=== PATIENT | male | born 1940 | race Caucasian/White ===

== ENCOUNTER 2017-07-22 08:55 | Day surgery (SDC) | payer MEDICARE, SELFPAY ==
[~2017-07-22] VITALS: Ht 180.3 cm; Wt 80.3 kg
[~2017-07-22 08:55] MED LIST: ADAL40PEN; AMLO5 PO; ASPI81CH; ATOR20 PO; BENA20 PO; BUME2 PO; CEFD300; CETI5; CHOL10002; DOCU100; FIBER; FURO20 PO; FURO80 PO; GLIP10 PO; HYDMOR2 PO; INSU100I6 SC; INSUASPI; INSUASPI SUBQ; INSULANI SUBQ; INSULANPEN SC; IRON; LATA.005SO; LAVAP17G; LAVAP17G PO; LOSA50; Norco 5-325 Ta1 EACH PO; PARI1 PO; PSYL5.85P; ROSU5 PO; Simvastatin10 MG PO; Uloric80 MG PO; VITAMIN B122500 MCG; Vitamin C100 M1; Zithromax250 MG; Zofran Odt4 MG PO; [UNRECOGNIZED DRUG - OTHER]
== END 2017-07-22 11:11 | disposition home or self-care (01) ==
LOC: ORSCSDS 08:55
PROVIDERS: Internal Medicine Gastroenterology
PROC: 0DBB8ZX Excision of Ileum, Via Natural or Artificial Opening Endoscopic, Diagnostic (ICD-10-PCS; principal; 2017-07-22 10:15)
DX: K50.019 Crohn's disease of small intestine with unspecified complications (principal); K52.9 Noninfective gastroenteritis and colitis, unspecified; K64.8 Other hemorrhoids; K57.30 Diverticulosis of large intestine without perforation or abscess without bleeding; J44.9 Chronic obstructive pulmonary disease, unspecified; Z87.891 Personal history of nicotine dependence; Z79.82 Long term (current) use of aspirin; Z79.4 Long term (current) use of insulin; Z79.899 Other long term (current) drug therapy
CPT/HCPCS: 82947; 88305; J7120

== ENCOUNTER 2019-06-09 08:21 | Inpatient (IN) | payer MEDICARE, OTHER ==
[~2019-06-09] VITALS: Ht 180.3 cm; Wt 68.9 kg
[~2019-06-09 08:21] MED LIST changes: -ASPI81CH; +Aspirin EC81 MG PO; -INSU100I6 SC; -LATA.005SO; +LATA.005SO BOTHEYES; +NOVOLOG FL100 UNIT/1 SC
[2019-06-09] MEDS ORDERED: CALC.25 PO (08:45)
[2019-06-09] MEDS ORDERED: Prednisone10 M1 PO (08:46)
[2019-06-09 09:31] LABS: BASOPHILS ABSOLUTE AUTO 0.01 K/mm3 (0.00-0.23); BASOPHILS PERCENT AUTO 0 % (0-2); EOSINOPHILS PERCENT AUTO 0 % (0-6); Hematocrit 34.2 % (37.0-53.0); Hemoglobin 11.6 g/dL (13.5-17.5); IMMATURE GRAN ABSOLUTE AUTO 0.16 K/mm3 (0.00-0.10); IMMATURE GRAN PERCENT AUTO 1 % (0-1); LYMPHOCYTES ABSOLUTE AUTO 0.11 K/mm3 (0.84-5.20); LYMPHOCYTES PERCENT AUTO 1 % (21-46); MONOCYTES ABSOLUTE AUTO 0.58 K/mm3 (0.16-1.47); MONOCYTES PERCENT AUTO 5 % (4-13); Mean Corpuscular HGB 31.5 pg (26.0-34.0); Mean Corpuscular HGB Conc 33.9 g/dL (31.5-36.5); Mean Corpuscular Volume 93 fL (80-100); Mean Platelet Volume 11.1 fL (9.1-12.4); NEUTROPHILS ABSOLUTE AUTO 11.05 K/mm3 (1.96-9.15); NEUTROPHILS PERCENT AUTO 93 % (41-73); Platelet Count 214 K/mm3 (150-400); RDW Coefficient Variation 13.8 % (11.7-14.2); RDW Standard Deviation 47.2 fL (35.1-46.3); Red Blood Cell Count 3.68 M/mm3 (4.30-5.90); White Blood Cell Count 11.91 K/mm3 (4.00-11.30)
[2019-06-09 09:32] LABS: Source, Urine Clean Catch
[2019-06-09 09:40] LABS: Bilirubin, Urine Neg (Neg); Blood, Urine 2+ (Neg); Glucose Qualitative, Urine 4+ (Neg); Ketones, Urine Neg (Neg); Leukocyte Esterase, Urine Neg (Neg); Nitrite, Urine Neg (Neg); Protein, Urine 2+ (Neg); Urobilinogen, Urine NORM (Normal)
[2019-06-09 09:47] LABS: Appearance, Urine Clear (Clear); Bacteria Not Seen /hpf; Color, Urine Pale Yellow (P-Yellow); Red Blood Cells, Urine 0-2 /hpf (0-2); Squamous Epithelial Cells Rare /hpf (Few); White Blood Cells, Urine Not Seen /hpf (0-5)
[2019-06-09 09:51] LABS: Troponin I 0.061 ng/mL (0.000-0.040)
[2019-06-09 09:58] LABS: Bilirubin, Total 0.6 mg/dL (0.1-1.0); Bun/Creatinine Ratio 24.4 (12.0-20.0); Calcium, Blood 7.8 mg/dL (8.5-10.1); Creatinine, Blood 2.34 mg/dL (0.60-1.20); Globulin, Blood 3.1 g/dL (2.2-4.0); Potassium, Blood 5.5 mmol/L (3.5-5.5); Total Protein, Blood 6.1 g/dL (6.4-8.2)
[2019-06-09] MEDS ORDERED: LOSA50 PO (12:51)
[2019-06-09] MEDS ORDERED: Glucotrol5 MG PO (12:53)
[2019-06-09] MEDS ORDERED: TAMSULOSIN HCL0.4 M1 PO (12:54)
[2019-06-09] MEDS ORDERED: OMEP20ER PO (12:54)
[2019-06-09] MEDS ORDERED: Vitamin D2000 UNIT PO (15:24)
--- NOTE | 2019-06-09 15:32 | NUR ---
Assumed Care A/Ox3, patient from ER to room 342. REceived report from LEVI Levine. Patient arrived to unit via wheelchair and settled to room. Call light near, bed in lowest position. Patient oriented to call light and bed controls.
[2019-06-09 17:56] LABS: Glucose, Blood 533 mg/dL (70-99)
--- NOTE | 2019-06-09 18:14 | NUR ---
Blood Sugar 533 Called and L/M on Charmaine's phone RE Blood sugar of 533.
--- NOTE | 2019-06-09 18:18 | NUR ---
Shift Summary A/Ox4 to self, date, place, and situation although can be forgetful about timeline. Pt is on RA, Tele in place. Patient has been hyperglycemic >500's (see previous note) and tank car inspector Sally aware. Pt is continent to the bathroom, 1P min-mod assist c gait and FWW. Denies pain at this time. Patient has symptoms of polydipsia and polyphagia. Wound care provided to skin tears on L elbow and arm from fall at home. No other concerns at this time.
--- NOTE | 2019-06-09 18:35 | NUR ---
Blood Sugar Per Charmaine, NPO and Q4 Blood sugar checks until BS < 300, give Lantus early. Fast acting insulin will be changed to High SS. Q4 blood sugar checks to be treated with High SS.
[2019-06-09 20:57] LABS: Glucose, Blood 494 mg/dL (70-99)
--- NOTE | 2019-06-09 22:06 | NUR ---
CALLED SNACK BAR CASHIER INFORMED HER PT'S GLUCOSE WAS 496. SHE ORDERED 20 UNITS HUMALOG SUBCUT NOW. WILL RECHECK GLUCOSE LEVEL IN 4 HOURS ORDERED. PT IS NPO EXCEPT WATER, ORDERED.
--- NOTE | 2019-06-09 23:45 | NUR ---
CALLED PREFORMING MACHINE OPERATOR TROPONIN LAB STILL TRENDING UP, NOW 0.113 (WAS 0.096 @ 3PM TODAY). ORDERS ARE TO RECHECK TROPONIN LAB IN 8 HRS. ORDERS ENTERED. PT IS ASYMPTOMATIC, DENIES CHEST PAIN. TELEMETRY STATES PT IS NSR W/PAC'S @ 62 BPM. ALTHOUGH NOT CRITICAL HIGH LAB, UPWARD TREND OF THIS LAB IS CONCERNING. WILL CONTINUE TO MONITOR.
--- NOTE | 2019-06-10 04:10 | NUR ---
SHIFT SUMMARY ADMITTED FOR WEAKNESS, FELL AT HOME. DNR CODE. UNCONTROLLED DM2. ACHS CHEMSTICKS, HIGH SS, ADA/LOW NA+ DIET. 1 KIDNEY-BAEZ PT. RA, CONTINENT. 1 ASSIST W/FWW & GAITBELT TO BATHROOM. NS INFUSING @ 100 ML/HR. LIVES ALONE, MAY NEED TO DC W/HH. UNCONTROLLED CHRONIC HTN - GOAL < 180 SBP. HYDRALAZINE PRN AVAILABLE FOR > 190 SBP. GLUCOSE LEVEL 290 AT LAST CHEMSTICK. CONCERN FOR UPTRENDING TROPONIN LABS (0.113), ALL LABS TO BE DRAWN @ 0800 (ALONG W/NEW TROPONIN). TELEMETRY MONITORING: NSR W/PAC'S @ 62 BPM. HX: HTN, DM2, CKD3, CROHNS DISEASE, COPD, ASTHMA, BLADDER CANCER. DAILY POT SMOKER PER ER REPORT. DRESSING ON LEFT ARM WOUNDS FROM FALL CHANGED THIS SHIFT.
[2019-06-10 08:10] LABS: BASOPHILS ABSOLUTE AUTO 0.01 K/mm3 (0.00-0.23); BASOPHILS PERCENT AUTO 0 % (0-2); EOSINOPHILS PERCENT AUTO 1 % (0-6); Hematocrit 32.6 % (37.0-53.0); Hemoglobin 11.1 g/dL (13.5-17.5); IMMATURE GRAN ABSOLUTE AUTO 0.21 K/mm3 (0.00-0.10); IMMATURE GRAN PERCENT AUTO 2 % (0-1); LYMPHOCYTES ABSOLUTE AUTO 1.36 K/mm3 (0.84-5.20); LYMPHOCYTES PERCENT AUTO 12 % (21-46); MONOCYTES ABSOLUTE AUTO 0.71 K/mm3 (0.16-1.47); MONOCYTES PERCENT AUTO 6 % (4-13); Mean Corpuscular HGB 31.3 pg (26.0-34.0); Mean Corpuscular Volume 92 fL (80-100); Mean Platelet Volume 10.5 fL (9.1-12.4); NEUTROPHILS ABSOLUTE AUTO 8.88 K/mm3 (1.96-9.15); NEUTROPHILS PERCENT AUTO 79 % (41-73); Platelet Count 189 K/mm3 (150-400); RDW Coefficient Variation 13.9 % (11.7-14.2); Red Blood Cell Count 3.55 M/mm3 (4.30-5.90); White Blood Cell Count 11.27 K/mm3 (4.00-11.30)
[2019-06-10 08:37] LABS: Troponin I 0.104 ng/mL (0.000-0.040)
[2019-06-10 08:42] LABS: Albumin, Blood 2.7 g/dL (3.4-5.0); Bilirubin, Total 0.5 mg/dL (0.1-1.0); Bun/Creatinine Ratio 19.9 (12.0-20.0); Calcium, Blood 7.4 mg/dL (8.5-10.1); Creatinine, Blood 2.06 mg/dL (0.60-1.20); Globulin, Blood 2.8 g/dL (2.2-4.0); Potassium, Blood 3.8 mmol/L (3.5-5.5); Total Protein, Blood 5.5 g/dL (6.4-8.2)
--- NOTE | 2019-06-10 10:44 | NUR ---
Blood Sugar check Blood sugar checked this AM and found to be 28. Pt conscious, alert, talking, diaphoretic, and c/o being hot. Afebrile. Pt given orange juice with peanut butter and blood sugars were rechecked, this process was repeated over the course of 1-2 hours. recruiting associate notified and aware. Blood sugar is now 72. Pt is resting comfortably in bed after having breakfast.
--- NOTE | 2019-06-10 17:30 | NUR ---
SHIFT SUMMARY A/OX4, PLEASANT GENTLEMAN, DOES NOT CALL APPROPRIATELY USING CALL LIGHT DESPITE REMINDERS. CONTINENT, 1P SBA FWW TO BATHROOM, INDEPENDENT WITH URINAL AT BEDSIDE. PT'S EVENING BLOOD SUGAR IS 266. WOUND CARE ON SKIN TEAR TO LEFT ELBOW AND FOREARM, DRESSING CHANGED X 2. PT'S SISTER (ESTIVEN) HAS AGREED AND PREFERS PATIENT BEING DISCHARGED WITH HH TO HER HOUSE SHE HAS AN EXTRA ROOM AVAILABLE AND ABLE TO BE THERE 24 HOURS/DAY. ESTIVEN PROVIDED HER ADDRESS, THIS RN PLACED IT IN FRONT OF CHART. NO OTHER CONCERNS AT THIS TIME. WILL CONTINUE TO MONITOR.
--- NOTE | 2019-06-11 03:57 | NUR ---
SHIFT SUMMARY ADMITTED FOR WEAKNESS. DNR CODE. UNCONTROLLED DM2 & HTN, NONCOMPLIANT W/HOME MEDS. 1 REMAINING KIDNEY - BAEZ PT. RA, CONTINENT, 1 ASSIST W/FWW & GAIT BELT. ADA/2 G LOW NA+ DIET, LOW SS, ACHS CHEMSTICKS, A&O X3-4, FORGETFUL. LIVES ALONE. PLAN IS TO STABILIZE GLUCOSE LEVELS. HOPEFUL TO DC TO SISTER'S HOME W/HH. TELEMETRY IS MONITORING: NSR @ 64 BPM. PRN HYDRALAZINE IN EMAR IF SBP >190. NS INFUSING @ 100 ML/HR. SKIN TEARS ON LEFT ARM FROM RECENT FALL ARE BANDAGED. GLUCOSE 370 THIS SHIFT. HX: BLADDER CA, HTN, DM2, CKD3, CROHNS DISEASE, COPD, ASTHMA.
[2019-06-11 05:28] LABS: BASOPHILS ABSOLUTE AUTO 0.01 K/mm3 (0.00-0.23); BASOPHILS PERCENT AUTO 0 % (0-2); EOSINOPHILS ABSOLUTE AUTO 0.04 K/mm3 (0.00-0.68); EOSINOPHILS PERCENT AUTO 1 % (0-6); Hematocrit 29.7 % (37.0-53.0); Hemoglobin 9.9 g/dL (13.5-17.5); IMMATURE GRAN ABSOLUTE AUTO 0.13 K/mm3 (0.00-0.10); IMMATURE GRAN PERCENT AUTO 2 % (0-1); LYMPHOCYTES ABSOLUTE AUTO 0.43 K/mm3 (0.84-5.20); LYMPHOCYTES PERCENT AUTO 6 % (21-46); MONOCYTES ABSOLUTE AUTO 0.48 K/mm3 (0.16-1.47); MONOCYTES PERCENT AUTO 7 % (4-13); Mean Corpuscular HGB 31.6 pg (26.0-34.0); Mean Corpuscular HGB Conc 33.3 g/dL (31.5-36.5); Mean Platelet Volume 10.7 fL (9.1-12.4); NEUTROPHILS ABSOLUTE AUTO 5.74 K/mm3 (1.96-9.15); NEUTROPHILS PERCENT AUTO 84 % (41-73); Platelet Count 161 K/mm3 (150-400); RDW Coefficient Variation 14.4 % (11.7-14.2); Red Blood Cell Count 3.13 M/mm3 (4.30-5.90); White Blood Cell Count 6.83 K/mm3 (4.00-11.30)
[2019-06-11 05:32] LABS: Mean Corpuscular Volume 95 fL (80-100)
[2019-06-11 05:53] LABS: Albumin, Blood 2.2 g/dL (3.4-5.0); Anion Gap 5 mmol/L (6-16); Blood Urea Nitrogen 37 mg/dL (8-24); Bun/Creatinine Ratio 17.5 (12.0-20.0); CO2, Blood 22 mmol/L (21-32); Calcium, Blood 7.2 mg/dL (8.5-10.1); Chloride, Blood 114 mmol/L (98-108); Creatinine, Blood 2.12 mg/dL (0.60-1.20); Glomerular Filtration Rate 32 (60-); Glucose, Blood 250 mg/dL (70-99); Phosphorus, Blood 1.6 mg/dL (2.5-4.9); Potassium, Blood 4.3 mmol/L (3.5-5.5); Sodium, Blood 141 mmol/L (136-145)
--- NOTE | 2019-06-11 16:21 | NUR ---
SHIFT SUMMARY PT AWAKE DURING SHIFT REPORT, WATCHING TV. BED ALARM ON FOR SAFETY. HX OF FALLS AT HOME WITH DRSG TO L ARM D/T SKIN TEAR FROM HOME. PT GETTTING UP TO EOB TO USE URINAL AT BS, SETTING BED ALARM OFF. PT WEAK AND VERY UNSTEADY FIRST SEVERAL HOURS OF THE DAY. PT LATER TO BTHRM SEVERAL TIMES TO VOID, USING FWW, DOING BETTER. PT'S NEPHEW IN TODAY ASKING ABOUT PT GOING HOME. NEPHEW REPORTED PT NEEDING TO GO TO HIS SISTERS FOR ASSISTANCE AND CARE AT D/C. HX OF IDDM; VERY BRITTLE DIABETIC. PT NONCOMPLIANT WITH MEDS AND DIABETIC DIET AT HOME, LIVING ALONE. PT ABLE TO WORK WITH PT/OT TODAY AND POSSIBLY D/C TO SNF TODAY OR TOMORROW. CARE MANAGERS WORKING WITH PT. CALL LT IN REACH. PT ABLE TO USE.
[2019-06-12 05:31] LABS: BASOPHILS ABSOLUTE AUTO 0.02 K/mm3 (0.00-0.23); BASOPHILS PERCENT AUTO 0 % (0-2); EOSINOPHILS PERCENT AUTO 1 % (0-6); Hematocrit 28.5 % (37.0-53.0); Hemoglobin 9.5 g/dL (13.5-17.5); IMMATURE GRAN ABSOLUTE AUTO 0.16 K/mm3 (0.00-0.10); IMMATURE GRAN PERCENT AUTO 2 % (0-1); LYMPHOCYTES ABSOLUTE AUTO 0.72 K/mm3 (0.84-5.20); LYMPHOCYTES PERCENT AUTO 10 % (21-46); MONOCYTES ABSOLUTE AUTO 0.53 K/mm3 (0.16-1.47); MONOCYTES PERCENT AUTO 8 % (4-13); Mean Corpuscular HGB 30.9 pg (26.0-34.0); Mean Corpuscular HGB Conc 33.3 g/dL (31.5-36.5); Mean Corpuscular Volume 93 fL (80-100); Mean Platelet Volume 10.8 fL (9.1-12.4); NEUTROPHILS ABSOLUTE AUTO 5.42 K/mm3 (1.96-9.15); NEUTROPHILS PERCENT AUTO 78 % (41-73); Platelet Count 168 K/mm3 (150-400); RDW Coefficient Variation 14.4 % (11.7-14.2); RDW Standard Deviation 48.5 fL (35.1-46.3); Red Blood Cell Count 3.07 M/mm3 (4.30-5.90); White Blood Cell Count 6.95 K/mm3 (4.00-11.30)
--- NOTE | 2019-06-12 05:43 | NUR ---
GROUND SCHOOL INSTRUCTOR SUMMARY PT SLEPT WELL ALL NIGHT. IV IN RIGHT UPPER ARM BURNED AND INFILTRATED. THERE'S BEEN NO ACUTE CHANGES. VSS. DR. ELAM CALLED AND AN NO IV ACCESS WAS ORDERED. PEPCID 20 MG IV BID DC'D. PEPCID 20 MG PO BID ORDERED. POSSIBLE DISCHARGE TO [facility] TODAY.
[2019-06-12 05:57] LABS: Albumin, Blood 2.4 g/dL (3.4-5.0); Anion Gap 4 mmol/L (6-16); Blood Urea Nitrogen 40 mg/dL (8-24); Bun/Creatinine Ratio 18.5 (12.0-20.0); CO2, Blood 24 mmol/L (21-32); Calcium, Blood 7.7 mg/dL (8.5-10.1); Chloride, Blood 114 mmol/L (98-108); Creatinine, Blood 2.16 mg/dL (0.60-1.20); Glomerular Filtration Rate 32 (60-); Glucose, Blood 151 mg/dL (70-99); Phosphorus, Blood 1.8 mg/dL (2.5-4.9); Sodium, Blood 142 mmol/L (136-145)
--- NOTE | 2019-06-12 09:55 | NUR ---
PT PUSHED CALL LIGHT TWICE WITHIN ONE MINUTE, TALENT ACQUISITION ASSISTANT PROMPTY SHOWED UP, PT RAN TO BR WITH WALKER NOT LISTENING TO TALENT ACQUISITION ASSISTANT.
[2019-06-12] MEDS ORDERED: INSULANPEN SC (11:56)
--- NOTE | 2019-06-12 12:12 | NUR ---
SHIFT SUMMARY NO ACUTE CHANGES TO PRESENT THIS SHIFT. PT UP TO EOB TO USE URINAL AND TO BTHRM USING FWW AND 1P SBA. SITTING IN CHAIR AT BS FOR MEALS. REMAINS UNSTEADY WHEN LEFT ALONE. PT TO D/C TO [facility] THIS AFTERNOON. PT SOMEWHAT STUBBORN AND USED TO LIVING ON HIS OWN. PT'S SISTER WOULD LIKE PT TO LIVE WITH HER, BUT PT WANTING TO RETURN HOME. PT IS FORGETFUL AND NEEDING SOME ASSIST, BUT IN DENIAL. BED AND CHAIR ALARMS ON. CALL LT IN REACH. PT USES FREQUENTLY, BUT ALSO SETS OFF ALARMS FREQUENTLY WELL. NO C/O. WILL MONITOR.
--- NOTE | 2019-06-12 17:19 | NUR ---
PT UP TO SHOWER EARLIER TODAY AND INTO HOME CLOTHES, HOPING TO GO HOME. STILL WAITING FOR INSURANCE TO APPROVE REHAB. PT UNABLE TO D/C TODAY. ASSISTED PT BACK INTO GOWN AND INTO BED. RESTING QUIETLY. CALL LT IN REACH.
--- NOTE | 2019-06-13 06:20 | NUR ---
SHIFT SUMMARY PT IS 78 Y/O MALE, ADMITTED FOR ACS. HE IS A&O X 3, AND A 1PA OUT OF BED. PT DENIED ANY COMPLAINTS OF PAIN, NAUSEA OR SOB. VITAL SIGNS STABLE. PT SLEPT WELL DURING THE NIGHT. NO ACUTE CHANGES IN PT CONDITION NOTED. WILL CONTINUE TO MONITOR AND TREAT PER EMAR UNTIL HAND OFF TO DAY SHIFT RN.
--- NOTE | 2019-06-13 14:09 | NUR ---
SHIFT SUMMARY A/OX4, PLEASANT AND COOPERATIVE WITH CARE. PT DISCHARGING TO [facility]. PT ESCORTED BY WHEELCHAIR VIA TRANSPORTER. PT HAD A SHOWER AND LAST BM TODAY. NO C/O PAIN. PERSONAL BELONGINGS SENT WITH PATIENT. REPORT GIVEN TO RECEIVING NURSE ABDIRAHMAN @ [facility], YELLOW FOLDER GIVENT TO PERSONNEL SUPERVISOR.
== END 2019-06-13 14:04 | DRG 638 ==
LOC: ER 08:21 → MEDS 12:38 → ENPENDDIS 06-12 12:00 → MEDS 06-12 22:14
PROVIDERS: Emergency Medicine; Family Medicine; ADMIT Family Medicine
DX: E11.65 Type 2 diabetes mellitus with hyperglycemia (principal); N17.9 Acute kidney failure, unspecified; K58.9 Irritable bowel syndrome, unspecified; J43.9 Emphysema, unspecified; E11.22 Type 2 diabetes mellitus with diabetic chronic kidney disease; I12.9 Hypertensive chronic kidney disease with stage 1 through stage 4 chronic kidney disease, or unspecified chronic kidney disease; N18.3 Chronic kidney disease, stage 3 (moderate); R29.6 Repeated falls; Z91.81 History of falling; Z87.891 Personal history of nicotine dependence; Z66 Do not resuscitate; Z79.84 Long term (current) use of oral hypoglycemic drugs; Z79.82 Long term (current) use of aspirin; Z79.4 Long term (current) use of insulin; Z79.899 Other long term (current) drug therapy
CPT/HCPCS: 36415; 71046; 80053; 80069; 81001; 82947; 83880; 84484; 85025; 93005; 93010; 94640; 96360; 96361; 97110; 97116; 97129; 97130; 97162; 97166; 97530; 97535; 99285-25; J1650; J1815; J7030; J7512

== ENCOUNTER 2019-07-08 07:00 | Inpatient (IN) | payer MEDICARE, OTHER ==
[~2019-07-08] VITALS: Ht 180.3 cm; Wt 69.8 kg
[~2019-07-08 07:00] MED LIST changes: +CALC.25 PO; +Glucotrol5 MG PO; +LOSA50 PO; +OMEP20ER PO; +Prednisone10 M1 PO; +TAMSULOSIN HCL0.4 M1 PO; -VITAMIN B122500 MCG; +VITAMIN B122500 MCG PO; +Vitamin D2000 UNIT PO
[2019-07-08 07:47] LABS: Hemoglobin 9.9 g/dL (13.5-17.5); Mean Corpuscular HGB 30.7 pg (26.0-34.0); Mean Corpuscular HGB Conc 31.9 g/dL (31.5-36.5); Mean Corpuscular Volume 96 fL (80-100); Mean Platelet Volume 9.6 fL (9.1-12.4); Platelet Count 495 K/mm3 (150-400); RDW Coefficient Variation 14.3 % (11.7-14.2); RDW Standard Deviation 49.7 fL (35.1-46.3); Red Blood Cell Count 3.23 M/mm3 (4.30-5.90); White Blood Cell Count 29.98 K/mm3 (4.00-11.30)
[2019-07-08] MEDS ORDERED: FUROSEMIDE20 MG PO (08:04)
[2019-07-08 08:19] LABS: BAND PERCENT MAN 15 % (0-8); BASOPHILS PERCENT MAN 0 % (0-2); EOSINOPHILS PERCENT MAN 0 % (0-6); MONOCYTES ABSOLUTE MAN 2.69 K/mm3 (0.16-1.47); MONOCYTES PERCENT MAN 9 % (4-13); NEUTROPHILS ABSOLUTE MAN 27.28 K/mm3 (1.96-9.15); SEG NEUTROPHILS PERCENT MAN 76 % (41-73); TOTAL CELLS COUNTED 100
[2019-07-08 08:36] LABS: Albumin, Blood 2.1 g/dL (3.4-5.0); Albumin/Globulin Ratio 0.4 (0.8-1.8); Bilirubin, Total 0.3 mg/dL (0.1-1.0); Bun/Creatinine Ratio 12.5 (12.0-20.0); Calcium, Blood 5.2 mg/dL (8.5-10.1); Creatinine, Blood 2.32 mg/dL (0.60-1.20); Globulin, Blood 4.7 g/dL (2.2-4.0); Total Protein, Blood 6.8 g/dL (6.4-8.2)
[2019-07-08 14:15] LABS: Calcium, Blood 5.3 mg/dL (8.5-10.1); Magnesium, Blood 0.5 mg/dL (1.6-2.4); Phosphorus, Blood 5.4 mg/dL (2.5-4.9)
[2019-07-08 14:54] LABS: Adenovirus Not Detected (NOT DETECT); Coronavirus 229E Not Detected (NOT DETECT); Coronavirus HKU1 Not Detected (NOT DETECT); Coronavirus NL63 Not Detected (NOT DETECT); Coronavirus OC43 Not Detected (NOT DETECT); Human Metapneumovirus Not Detected (NOT DETECT); Human Rhinovirus/Enterovirus Not Detected (NOT DETECT); Influenza A Not Detected (NOT DETECT); Influenza A/2009-H1 Not Detected (NOT DETECT); Influenza A/H1 Not Detected (NOT DETECT); Influenza A/H3 Not Detected (NOT DETECT); Influenza B Not Detected (NOT DETECT); Parainfluenza Virus 1 Not Detected (NOT DETECT); Parainfluenza Virus 2 Not Detected (NOT DETECT); Parainfluenza Virus 3 Not Detected (NOT DETECT); Parainfluenza Virus 4 Not Detected (NOT DETECT)
[2019-07-08 14:55] LABS: Bordetella pertussis Not Detected (NOT DETECT); Chlamydophila pneumoniae Not Detected (NOT DETECT); Mycoplasma pneumoniae Not Detected (NOT DETECT); Respiratory Syncytial Virus Not Detected (NOT DETECT)
[2019-07-08 17:45] LABS: Source, Urine Clean Catch
[2019-07-08 17:53] LABS: Bilirubin, Urine Neg (Neg); Blood, Urine 4+ (Neg); Glucose Qualitative, Urine Neg (Neg); Ketones, Urine Neg (Neg); Leukocyte Esterase, Urine Neg (Neg); Nitrite, Urine Neg (Neg); Protein, Urine 2+ (Neg); Specific Gravity, Urine 1.015 (1.003-1.022); Urobilinogen, Urine NORM (Normal)
[2019-07-08 18:13] LABS: Appearance, Urine Clear (Clear); Color, Urine Yellow (P-Yellow)
[2019-07-08 18:14] LABS: Bacteria Few /hpf; Red Blood Cells, Urine 0-2 /hpf (0-2); Squamous Epithelial Cells Few /hpf (Few); White Blood Cells, Urine 0-2 /hpf (0-5)
[2019-07-08 18:15] LABS: Amorphous Light (0-Heavy)
--- NOTE | 2019-07-08 19:08 | NUR ---
SHIFT SUMMARY PT IS A CONFUSED, ONLY ORIENTED TO SELF, WHO WAS ADMITTED FROM ER THIS AFTERNOON. PT WAS A POOR HISTORIAN AND WOULD ANSWER QUESTIONS WITH "I DON'T KNOW" ATTEMPTED TO REACH OUT TO FAMILY FOR CLARIFICATION, BUT WAS UNABLE TO REACH THEM. PT HAD MULTIPLE CRITICALLY LOW ELECTROLYTES AND MULTIPLE CONVERSATIONS WERE HAD WITH DR COYLE. ELECTROLYTES WERE REPLACED PER ORDERS. THIS EVENINGS CBG WAS LOW AT 36. 1/2 AMP OF D50 GIVEN AND CBG CAME UP TO 99. INFUSION OF D5NS WAS STARTED TO HELP PT MAINTAIN GLUCOSE LEVEL. VITALS HAVE REMAINED STABLE. TELEMETRY SHOWS PT IN SINUS RHYTHM. PT ARRIVED ON 2L NC.
[2019-07-08 19:10] LABS: Free Thyroxine 1.18 ng/dL (0.70-1.60)
[2019-07-08 19:12] LABS: Thyroid Stimulating Hormone 0.842 uIU/mL (0.360-4.800)
--- NOTE | 2019-07-08 19:15 | NUR ---
RECEIVED REPORT FROM LEVI QUINTANILLA. ASSUMED CARE OF PT. RESTING COMFORTABLY IN NO ACUTE DISTRESS AT THIS TIME. DENIES ANY NEEDS AT THIS TIME. CALL LIGHT IN REACH, BED IN LOW AND LOCKED POSITION WITH BED ALARM ACTIVATED. WILL CONTINUE TO MONITOR.
--- NOTE | 2019-07-08 21:38 | NUR ---
SPOKE TO DR. COYLE REGARDING PT'S CALCIUM AND MAGNESIUM LEVELS, CBG READING, AND CLARIFIED MEDICATIONS. ORDERS RECEIVED.
--- NOTE | 2019-07-08 22:00 | NUR ---
SPOKE TO DR. COYLE REGARDING PT'S RECENT CALCIUM LEVEL. ORDERS RECEIVED.
[2019-07-09 03:18] LABS: BASOPHILS ABSOLUTE AUTO 0.01 K/mm3 (0.00-0.23); BASOPHILS PERCENT AUTO 0 % (0-2); EOSINOPHILS PERCENT AUTO 0 % (0-6); Hematocrit 26.3 % (37.0-53.0); Hemoglobin 8.6 g/dL (13.5-17.5); IMMATURE GRAN ABSOLUTE AUTO 0.09 K/mm3 (0.00-0.10); IMMATURE GRAN PERCENT AUTO 1 % (0-1); LYMPHOCYTES ABSOLUTE AUTO 0.39 K/mm3 (0.84-5.20); LYMPHOCYTES PERCENT AUTO 2 % (21-46); MONOCYTES ABSOLUTE AUTO 0.67 K/mm3 (0.16-1.47); MONOCYTES PERCENT AUTO 4 % (4-13); Mean Corpuscular HGB Conc 32.7 g/dL (31.5-36.5); Mean Corpuscular Volume 95 fL (80-100); Mean Platelet Volume 9.5 fL (9.1-12.4); NEUTROPHILS ABSOLUTE AUTO 16.93 K/mm3 (1.96-9.15); NEUTROPHILS PERCENT AUTO 94 % (41-73); Platelet Count 438 K/mm3 (150-400); RDW Coefficient Variation 14.2 % (11.7-14.2); RDW Standard Deviation 49.7 fL (35.1-46.3); Red Blood Cell Count 2.77 M/mm3 (4.30-5.90); White Blood Cell Count 18.09 K/mm3 (4.00-11.30)
[2019-07-09 03:36] LABS: Albumin, Blood 1.9 g/dL (3.4-5.0); Albumin/Globulin Ratio 0.5 (0.8-1.8); Bilirubin, Total 0.3 mg/dL (0.1-1.0); Bun/Creatinine Ratio 13.9 (12.0-20.0); Calcium, Blood 6.9 mg/dL (8.5-10.1); Creatinine, Blood 2.31 mg/dL (0.60-1.20); Globulin, Blood 4.2 g/dL (2.2-4.0); Phosphorus, Blood 5.8 mg/dL (2.5-4.9); Potassium, Blood 3.9 mmol/L (3.5-5.5); Total Protein, Blood 6.1 g/dL (6.4-8.2)
--- NOTE | 2019-07-09 07:42 | NUR ---
PT RESTING IN BED COMFORTABLY, IN NO ACUTE DISTRESS. WAS MONITORED EVERY 1-2 HOURS T/O SHIFT C NEEDS MET. DENIES ANY NEEDS AT THIS TIME. VS AND LABS STABLE AT THIS TIME. CALL LIGHT IN REACH, BED IN LOW POSITION WITH BED ALARM ACTIVATED. REPORTED OFF TO DAYSHIFT RN.
--- NOTE | 2019-07-09 09:52 | NUR ---
REPORT GIVEN TO HERNAN SIMS TO ASSUME CARE.
--- NOTE | 2019-07-09 17:44 | NUR ---
PCU DAYSHIFT SUMMARY PATIENT WAS CONFUSED TO LOCATION, SELF AND SITUATION AT BEGINNING OF SHIFT - PATIENT IS NOW ALERT AND ORIENTED TO SELF, DATE, SITUATION AND LOCATION WITH APPROPRIATE CONVERSATION AT THIS TIME. PATIENT AMBULATED WITH SBA DOWN GREEN AND FWW AND TOLERATED WELL. RESP E/U ON ROOM AIR. PATIENT HAS BEEN IN NSR IN THE 80'S SINCE THE LOPRESSOR PUSH AND HIS SHORT RUN OF SVT THAT WAS REPORTED TO MD COYLE. PATIENT SITTING UP IN CHAIR WITH CHAIR ALARM DUE TO FALL PRECAUTIONS. NO ACUTE CHANGES THAT ARE NOT NOTED ABOVE. WILL CONTINUE TO MONITOR AND GIVE REPORT TO NOC SHIFT RN. CALL LIGHT W/I REACH.
--- NOTE | 2019-07-09 19:35 | NUR ---
RECEIVED REPORT FROM LEVI MOORE. ASSUMED CARE OF PT. RESTING COMFORTABLY AT THIS TIME, NO S/S ACUTE DISTRESS NOTED. DENIES ANY NEEDS AT THIS TIME. CALL LIGHT AND POSSESSIONS IN REACH, WILL CONTINUE TO MONITOR.
--- NOTE | 2019-07-09 21:23 | NUR ---
UPDATE DR BURGOS NOTIFIED OF PATIENT'S BLOOD SUGAR. ORDERS RECEIVED.
[2019-07-10 04:57] LABS: BASOPHILS ABSOLUTE AUTO 0.01 K/mm3 (0.00-0.23); BASOPHILS PERCENT AUTO 0 % (0-2); EOSINOPHILS ABSOLUTE AUTO 0.01 K/mm3 (0.00-0.68); EOSINOPHILS PERCENT AUTO 0 % (0-6); Hematocrit 23.9 % (37.0-53.0); Hemoglobin 7.7 g/dL (13.5-17.5); IMMATURE GRAN ABSOLUTE AUTO 0.08 K/mm3 (0.00-0.10); IMMATURE GRAN PERCENT AUTO 1 % (0-1); LYMPHOCYTES ABSOLUTE AUTO 0.74 K/mm3 (0.84-5.20); LYMPHOCYTES PERCENT AUTO 6 % (21-46); MONOCYTES ABSOLUTE AUTO 1.06 K/mm3 (0.16-1.47); MONOCYTES PERCENT AUTO 8 % (4-13); Mean Corpuscular HGB 30.8 pg (26.0-34.0); Mean Corpuscular HGB Conc 32.2 g/dL (31.5-36.5); Mean Corpuscular Volume 96 fL (80-100); Mean Platelet Volume 9.6 fL (9.1-12.4); NEUTROPHILS ABSOLUTE AUTO 11.54 K/mm3 (1.96-9.15); NEUTROPHILS PERCENT AUTO 86 % (41-73); Platelet Count 440 K/mm3 (150-400); RDW Coefficient Variation 14.2 % (11.7-14.2); RDW Standard Deviation 49.4 fL (35.1-46.3); White Blood Cell Count 13.44 K/mm3 (4.00-11.30)
[2019-07-10 05:18] LABS: Anion Gap 7 mmol/L (6-16); Blood Urea Nitrogen 40 mg/dL (8-24); Bun/Creatinine Ratio 18.1 (12.0-20.0); CO2, Blood 27 mmol/L (21-32); Calcium, Blood 8.3 mg/dL (8.5-10.1); Chloride, Blood 108 mmol/L (98-108); Creatinine, Blood 2.21 mg/dL (0.60-1.20); Glomerular Filtration Rate 31 (60-); Glucose, Blood 50 mg/dL (70-99); Magnesium, Blood 1.6 mg/dL (1.6-2.4); Phosphorus, Blood 4.1 mg/dL (2.5-4.9); Potassium, Blood 3.9 mmol/L (3.5-5.5); Sodium, Blood 142 mmol/L (136-145)
--- NOTE | 2019-07-10 06:40 | NUR ---
SPOKE TO DR. VALVERDE REGARDING PT'S H&H AND CBG READING. ORDERS RECEIVED TO MONITOR BLOOD GLUCOSE, NO NEW ORDERS RECEIVED FOR H&H. PHYSICIAN TO REVIEW CHART AND ENTER ORDERS NEEDED.
--- NOTE | 2019-07-10 08:00 | NUR ---
PT UP TO CHAIR, A/OX3, COOPERATIVE WITH CARE, FOLLOWS COMMANDS WELL, DENIES PIAN, OR COMPLAINTS, LUNGS ARE DIM SOME COURSENESS NOTED, IS ON R/A, RESP EVENA ND UNALBORED, HAS A HARSH PRODUCTIVE COUGH, TELE IN PLACE RUNNIG SR WITH BBB, PAC'S, PVC'S, 1+ EDEMA NOTED TO RLE, 2+ TO LLE, CAP REFILL <3SEC, VS STABLE, AFEBRILE, IV SITE TO LFA SITE IS CLEAR AND PATENT, BTX4, ABD ROUND SOFT NONTENDER, VOIDS SMALL AMOUNTS AT A TIME VIA URINAL, SKIN HAS SOME BRUISINGS AND SCABS, OTHERWISE C/W/D, MAEW, STANDS TO VOID, FAISAL, CALL LIGHT IN REACH.
--- NOTE | 2019-07-10 08:22 | NUR ---
PT RESTING IN BED COMFORTABLY, IN NO ACUTE DISTRESS. WAS MONITORED EVERY 1-2 HOURS WITH NEEDS MET. DENIES ANY NEEDS AT THIS TIME. CBG REASSESSED AND STABLE. CALL LIGHT AND POSSESSIONS IN REACH, REPORTED OFF TO LEVI TUCKER.
--- NOTE | 2019-07-10 12:37 | NUR ---
Call to Dr. Wills regarding pt's c/o difficulty voiding. Bladder scan showed 200 cc and pt was able to void 100cc. New orders recieved.
--- NOTE | 2019-07-10 13:15 | NUR ---
Noted new bumex order by Dr. Pack, scheduled to start tomorrow. Call to Dr. Pack to ask if he meant to have it start today; he said yes.Order was changed to start today per telephone order.
--- NOTE | 2019-07-10 18:35 | NUR ---
PT IS BEING TRANSFERED TO MEDICAL FLOOR, REPORT GIVEN TO DENIA SIMS, PT LEFT VIA WHEELCHAIR, WITH ALL HIS BELONGINGS.
--- NOTE | 2019-07-10 18:39 | NUR ---
PT ARRIVED TO ROOM 331 VIA W/C FROM PCU 8. PT STOOD AND TRANSFERRED TO BED WITH 1 ASSIST. SITTING ON EOB TO VOID, USING URINAL. ORIENTED TO ROOM AND CALL SYSTEM, BED IN LOWEST POSITION AND CALL OREILLY IN REACH. BED ALARM ARMED. WILL MONITOR
--- NOTE | 2019-07-11 05:37 | NUR ---
SHIFT SUMMARY PT IS A 78 Y/O MALE, ADMITTED FOR ACUTE RESPIRATORY FAILURE AND PNA. HE IS A&O X 3, THOUGH OCCASIONALLY FORGETFUL, AND ABLE TO STAND AT THE BEDSIDE TO USE A URINAL. PT WAS GIVEN 1 UNIT PRBCS ORDERED ON DAY SHIFT, THAT WAS TOLERATED WELL WITH NO S/S OF A REACTION. NO COMPLAINTS OF PAIN OR NAUSEA. PT DID REPORT MILD SOB WITH EXERTION, AND HAD A NONPRODUCTIVE, COARSE COUGH THROUGH THE NIGHT. LUNG SOUNDS COARSE IN BILATERAL UPPER LOBES. TELE MONITOR SHOWED NSR C BBB IN THE 80S. VITAL SIGNS STABLE. NO ACUTE CHANGES IN PT CONDITION NOTED. WILL CONTINUE TO MONITOR AND TREAT PER EMAR UNTIL HAND OFF TO DAY SHIFT RN.
[2019-07-11 06:03] LABS: BASOPHILS ABSOLUTE AUTO 0.01 K/mm3 (0.00-0.23); BASOPHILS PERCENT AUTO 0 % (0-2); EOSINOPHILS PERCENT AUTO 0 % (0-6); Hemoglobin 8.2 g/dL (13.5-17.5); IMMATURE GRAN ABSOLUTE AUTO 0.06 K/mm3 (0.00-0.10); IMMATURE GRAN PERCENT AUTO 1 % (0-1); LYMPHOCYTES ABSOLUTE AUTO 0.62 K/mm3 (0.84-5.20); LYMPHOCYTES PERCENT AUTO 6 % (21-46); MONOCYTES ABSOLUTE AUTO 0.75 K/mm3 (0.16-1.47); MONOCYTES PERCENT AUTO 8 % (4-13); Mean Corpuscular HGB 30.4 pg (26.0-34.0); Mean Corpuscular HGB Conc 32.8 g/dL (31.5-36.5); Mean Platelet Volume 9.5 fL (9.1-12.4); NEUTROPHILS ABSOLUTE AUTO 8.32 K/mm3 (1.96-9.15); NEUTROPHILS PERCENT AUTO 85 % (41-73); Platelet Count 375 K/mm3 (150-400); RDW Coefficient Variation 15.4 % (11.7-14.2); RDW Standard Deviation 51.8 fL (35.1-46.3); White Blood Cell Count 9.76 K/mm3 (4.00-11.30)
[2019-07-11 06:06] LABS: Mean Corpuscular Volume 93 fL (80-100)
[2019-07-11 06:39] LABS: Albumin, Blood 1.8 g/dL (3.4-5.0); Albumin/Globulin Ratio 0.5 (0.8-1.8); Bilirubin, Total 0.4 mg/dL (0.1-1.0); Bun/Creatinine Ratio 20.4 (12.0-20.0); Calcium, Blood 7.9 mg/dL (8.5-10.1); Creatinine, Blood 2.21 mg/dL (0.60-1.20); Globulin, Blood 3.7 g/dL (2.2-4.0); Magnesium, Blood 1.5 mg/dL (1.6-2.4); Phosphorus, Blood 3.4 mg/dL (2.5-4.9); Potassium, Blood 4.3 mmol/L (3.5-5.5); Total Protein, Blood 5.5 g/dL (6.4-8.2)
[2019-07-11] MEDS ORDERED: Bumetanide2 MG PO (13:04)
[2019-07-11] MEDS ORDERED: TUMS500 MG PO (13:11)
[2019-07-11] MEDS ORDERED: Florastor250 MG PO (13:12)
[2019-07-11] MEDS ORDERED: METO25ER PO (13:12)
[2019-07-11] MEDS ORDERED: AZIT250 PO (13:13)
[2019-07-11] MEDS ORDERED: CEFP200 PO (13:14)
--- NOTE | 2019-07-11 15:20 | NUR ---
DISCHARGE PT DISCHARGED TO HOME. THIS RN EXPLAINED DISCHARGE INSTRUCTIONS AND MEDICATIONS TO PT AND HE REPORTS HE UNDERSTANDS. IV REMOVED WITHOUT DIFFICULTY. PT ABLE TO GET SELF DRESSED. PT TRANSFERRED TO PRIVATE VEHICLE VIA WHEELCHAIR. BELONGINGS WITH PT.
== END 2019-07-11 14:25 | disposition home or self-care (01) | DRG 871 ==
LOC: ER 07:00 → PCU 09:07 → ERHOLD 09:07 → PCU 13:10 → MEDS 07-10 18:35
PROVIDERS: Emergency Medicine; Internal Medicine Endocrinology, Diabetes & Metabolism; Internal Medicine Nephrology; ADMIT Student in an Organized Health Care Education/Training Program
DX: A41.9 Sepsis, unspecified organism (principal); G92 Toxic encephalopathy; N17.9 Acute kidney failure, unspecified; I47.1 Supraventricular tachycardia; I13.0 Hypertensive heart and chronic kidney disease with heart failure and stage 1 through stage 4 chronic kidney disease, or unspecified chronic kidney disease; N25.81 Secondary hyperparathyroidism of renal origin; J44.1 Chronic obstructive pulmonary disease with (acute) exacerbation; R65.20 Severe sepsis without septic shock; E83.51 Hypocalcemia; E83.42 Hypomagnesemia; N18.3 Chronic kidney disease, stage 3 (moderate); E11.65 Type 2 diabetes mellitus with hyperglycemia; E11.22 Type 2 diabetes mellitus with diabetic chronic kidney disease; I50.9 Heart failure, unspecified; K58.9 Irritable bowel syndrome, unspecified; M81.0 Age-related osteoporosis without current pathological fracture; Z91.14 Patient's other noncompliance with medication regimen; Z90.5 Acquired absence of kidney; Z85.51 Personal history of malignant neoplasm of bladder; Z87.891 Personal history of nicotine dependence; Z79.82 Long term (current) use of aspirin; Z79.4 Long term (current) use of insulin; Z79.52 Long term (current) use of systemic steroids
CPT/HCPCS: 0099U; 36415; 36430; 51701; 71046; 76770; 80053; 80069; 81001; 82310; 82330; 82652; 82947; 83605; 83735; 83880; 83970; 84100; 84439; 84443; 85025; 86850; 86900; 86901; 86923; 87040; 93005; 93010; 94640; 94760; 96365; 96367; 96375; 96376; 97110; 97116; 97162; 97166; 99285-25; A9270-GY; J0456; J0610; J0696; J0881; J1650; J2930; J3475; J7030; J7040; J7042; J7050; P9016

== ENCOUNTER 2019-08-05 06:56 | Day surgery (SDC) | payer MEDICARE, OTHER ==
[~2019-08-05] VITALS: Ht 180.3 cm; Wt 67.5 kg
[~2019-08-05 06:56] MED LIST changes: +AZIT250 PO; +Bumetanide2 MG PO; +CEFP200 PO; +FUROSEMIDE20 MG PO; +Florastor250 MG PO; +METO25ER PO; +TUMS500 MG PO
--- NOTE | 2019-08-05 07:35 | NUR ---
Surgical site prepped with 2% Chlorhexidine cloth wipe. History, Chart, Medications and Allergies reviewed before start of procedure.Lungs clear T/O to Auscultation. Patient confirms NPO status and agrees with scheduled surgery. Pre-Op teaching done. Pt verbalizes understanding.
--- NOTE | 2019-08-05 10:11 | NUR ---
Discharge instructions reviewed with patient. Patient verbalizes understanding. Copy given to patient to take home. Patient States Post-Procedure ride home has been arranged. Dressing to procedure site clean, dry, intact with no visible drainage, swelling, erythema or bruising noted. Discharged via wheelchair to private car for ride home.
== END 2019-08-05 10:39 | disposition home or self-care (01) ==
LOC: ORSCMMR 06:56 → ORD 08:30 → ORSCMMR 08:30
PROVIDERS: Surgery
PROC: 05HM33Z Insertion of Infusion Device into Right Internal Jugular Vein, Percutaneous Approach (ICD-10-PCS; principal; 2019-08-05 08:30)
PROC: B543ZZA Ultrasonography of Right Jugular Veins, Guidance (ICD-10-PCS; principal; 2019-08-05 08:30)
DX: C66.2 Malignant neoplasm of left ureter (principal); C77.2 Secondary and unspecified malignant neoplasm of intra-abdominal lymph nodes; I10 Essential (primary) hypertension; E11.9 Type 2 diabetes mellitus without complications; N18.9 Chronic kidney disease, unspecified; Z87.891 Personal history of nicotine dependence; Z79.899 Other long term (current) drug therapy
CPT/HCPCS: 77001; 82947; 93005; 93010; C1788; J0690; J1642; J2370; J2704; J3010; J7120

== ENCOUNTER → 2019-09-23 | Outpatient (CLI) | payer MEDICARE, OTHER ==
[2019-09-23 16:12] LABS: BASOPHILS ABSOLUTE AUTO 0.04 K/mm3 (0.00-0.23); BASOPHILS PERCENT AUTO 0 % (0-2); EOSINOPHILS ABSOLUTE AUTO 0.16 K/mm3 (0.00-0.68); EOSINOPHILS PERCENT AUTO 1 % (0-6); Hematocrit 39.8 % (37.0-53.0); IMMATURE GRAN ABSOLUTE AUTO 0.15 K/mm3 (0.00-0.10); IMMATURE GRAN PERCENT AUTO 1 % (0-1); LYMPHOCYTES ABSOLUTE AUTO 2.19 K/mm3 (0.84-5.20); LYMPHOCYTES PERCENT AUTO 18 % (21-46); MONOCYTES ABSOLUTE AUTO 1.06 K/mm3 (0.16-1.47); MONOCYTES PERCENT AUTO 9 % (4-13); Mean Corpuscular HGB 31.3 pg (26.0-34.0); Mean Corpuscular HGB Conc 32.7 g/dL (31.5-36.5); Mean Corpuscular Volume 96 fL (80-100); Mean Platelet Volume 10.6 fL (9.1-12.4); NEUTROPHILS PERCENT AUTO 71 % (41-73); Platelet Count 345 K/mm3 (150-400); RDW Standard Deviation 52.2 fL (35.1-46.3); Red Blood Cell Count 4.16 M/mm3 (4.30-5.90)
[2019-09-23 16:29] LABS: Albumin, Blood 3.4 g/dL (3.4-5.0); Albumin/Globulin Ratio 0.8 (0.8-1.8); Bilirubin, Total 0.4 mg/dL (0.1-1.0); Calcium, Blood 8.1 mg/dL (8.5-10.1); Creatinine, Blood 2.31 mg/dL (0.60-1.20); Globulin, Blood 4.2 g/dL (2.2-4.0); Potassium, Blood 3.5 mmol/L (3.5-5.5); Total Protein, Blood 7.6 g/dL (6.4-8.2)
[2019-09-23 19:29] LABS: Bilirubin, Urine Neg (Neg); Blood, Urine Neg (Neg); Glucose Qualitative, Urine 3+ (Neg); Ketones, Urine Neg (Neg); Leukocyte Esterase, Urine Neg (Neg); Nitrite, Urine Neg (Neg); Protein, Urine 2+ (Neg); Specific Gravity, Urine 1.015 (1.003-1.022); Urobilinogen, Urine NORM (Normal)
[2019-09-23 20:05] LABS: Appearance, Urine Clear (Clear); Color, Urine Yellow (P-Yellow)
[2019-09-23 20:08] LABS: Red Blood Cells, Urine 0-2 /hpf (0-2); White Blood Cells, Urine 0-2 /hpf (0-5)
[2019-09-23 20:09] LABS: Bacteria Rare /hpf; Squamous Epithelial Cells Rare /hpf (Few)
== END | disposition home or self-care (01) ==
LOC: LAB 15:49 → LAB SHORT 15:49
PROVIDERS: Registered Nurse Oncology
DX: C66.2 Malignant neoplasm of left ureter (principal); C77.2 Secondary and unspecified malignant neoplasm of intra-abdominal lymph nodes; C78.00 Secondary malignant neoplasm of unspecified lung; N18.9 Chronic kidney disease, unspecified
CPT/HCPCS: 80053; 81001; 85025

== ENCOUNTER 2020-01-13 07:42 | Day surgery (SDC) | payer MEDICARE ==
[~2020-01-13] VITALS: Ht 180.3 cm; Wt 69.7 kg
== END 2020-01-13 10:32 | disposition home or self-care (01) ==
LOC: ORSCSDS 07:42
PROVIDERS: Ophthalmology
PROC: 08RJ3JZ Replacement of Right Lens with Synthetic Substitute, Percutaneous Approach (ICD-10-PCS; principal; 2020-01-13 09:00)
DX: H25.11 Age-related nuclear cataract, right eye (principal); H21.81 Floppy iris syndrome; E11.9 Type 2 diabetes mellitus without complications; Z87.891 Personal history of nicotine dependence; Z79.899 Other long term (current) drug therapy; Z79.82 Long term (current) use of aspirin
CPT/HCPCS: 82947; J2001; J2250; J3010; J3301; J7040; V2632

== ENCOUNTER 2020-02-19 18:43 | Emergency (ER) | payer MEDICARE, OTHER ==
[~2020-02-19] VITALS: Ht 180.3 cm; Wt 68.0 kg
== END 2020-02-19 20:46 | disposition home or self-care (01) ==
LOC: ER 18:43
DX: S41.112A Laceration without foreign body of left upper arm, initial encounter (principal); J44.9 Chronic obstructive pulmonary disease, unspecified; I12.9 Hypertensive chronic kidney disease with stage 1 through stage 4 chronic kidney disease, or unspecified chronic kidney disease; E11.22 Type 2 diabetes mellitus with diabetic chronic kidney disease; N18.30 Chronic kidney disease, stage 3 unspecified; Z79.4 Long term (current) use of insulin; Z79.52 Long term (current) use of systemic steroids; Z79.899 Other long term (current) drug therapy; Z79.82 Long term (current) use of aspirin; Z87.891 Personal history of nicotine dependence; Z23 Encounter for immunization; W01.190A Fall on same level from slipping, tripping and stumbling with subsequent striking against furniture, initial encounter
CPT/HCPCS: 90471; 90714; 99282-25